=== PATIENT | male | born 1990 | race Caucasian/White ===

== ENCOUNTER 2017-08-19 23:49 | Observation (INO) ==
[2017-08-20] MEDS ORDERED: *HR* Promethazine 25 MG/ML VIAL IVP PRN (01:18)
[2017-08-20] MEDS ORDERED: *HR* HYDROcodone/Acet 5/325 mg TABLET PO PRN (01:18)
[2017-08-20] MEDS ORDERED: Acetaminophen 325 MG TABLET PO PRN (01:18)
[2017-08-20] MEDS ORDERED: *HR* OxyCODONE Immed Rel 5 MG TABLET PO PRN (01:18)
[2017-08-20] MEDS ORDERED: Naloxone 0.4 MG/ML INJ IVP PRN (01:18)
[2017-08-20] MEDS ORDERED: Ondansetron 4 MG/2 ML VIAL IVP PRN (01:18)
[2017-08-20] MEDS: 0.9 % Sodium Chloride 1,000 ML IVC SCH ×2 (01:43→09:28)
[2017-08-20 02:02] LABS: Basophils % 0.2 %; Hematocrit 44.3 % (37.5-50.1); Hemoglobin 14.8 g/dL (12.9-16.9); Immature Granulocytes % 0.5 % (0-4); Lymphocytes # 0.8 K/mcL (0.6-4.6); Lymphocytes % 5.7 %; Mean Corpuscular HGB Conc 33.4 g/dL (31.6-35.5); Mean Corpuscular Hemoglobin 28.6 pg (28.0-33.3); Mean Corpuscular Volume 85.7 fL (83.0-100.0); Monocytes # 0.6 K/mcL (0.0-1.3); Monocytes % 3.9 %; Neutrophils # 13.2 K/mcL (1.6-8.9); Platelet Count 183 K/mcL (140-400); Red Blood Count 5.17 M/mcL (4.19-5.50); Red Cell Distribution Width 12.2 % (11.5-14.5); Segmented Neutrophils % 89.7 %
--- NOTE | 2017-08-20 02:18 | Internal Med History&Physical ---
Date of Encounter: 08/20/17 Time of Encounter: 02:14 Internal Medicine - H&P: HPI Chief complaint: Rt lower abdomen pain Admitted From: Emergency Dept Plans for Post Hospital Care: Home History of present illness: Mr. Najera is a 27 year old male with no significant past the history, who presented to [facility] emergency room with right-sided lower abdomen pain associated with some intractable nausea and vomiting started yesterday afternoon. Patient denied of any dysuria / micturition. He denied of any chest pain / shortness of breath. He denied of any sick contacts. He denied of any food poisoning. He denied of any bright red blood per rectum/melena. Patient had a further workup done in the [facility] emergency room, his white count was significantly elevated at 20.0, lactic acid 3.[address] of abdomen showed possible early appendicitis and right hydrouretero hydronephrosis with a 3 mm stone in the proximal right ureter. Patient was transferred to our hospital for further care. Patient states that, his abdominal pain, nausea and vomiting improved now Past Med Surg Social Fam HX - Past Medical History Medical history: no medical history Psychiatric history: no psych history - Past Surgical History Surgical History: no surgical history - Social History Smoking Status: Never smoker Smokeless Tobacco Status: No Alcohol use: none Drug use: none - Family History Paternal Grandmother Age: 74 Living Status: Hx Family Cardiac Disorders: Yes Hx Family Endocrine Disorder: Yes Internal Medicine - H&P: Meds 3 Allergy/AdvReac Type Severity Reaction Status Date / Time No Known Allergies Allergy Verified 08/20/17 01:34 All Systems PM: A 10-system review of systems was performed and is negative for pertinent findings except as documented above in the HPI. Review of systems: All the systems are reviewed everything is benign except the systems and symptoms I mentioned in the history of present illness - Constitutional Vitals: Temp Pulse Resp BP Pulse Ox 97.9 F 77 16 105/62 97 08/20/17 00:54 08/20/17 00:54 08/20/17 00:54 08/20/17 00:54 08/20/17 01:58 General appearance: Present: A&O X 3, no acute distress, answers questions appropriately - Head Head exam: Present: atraumatic, normal inspection - Neck Neck exam general surgery: Present: supple - Respiratory Respiratory exam: Present: CTAB. Absent: chest wall tenderness, rales, respiratory distress, rhonchi, wheezes - Cardiovascular Cardiovascular exam: Present: RRR, +S1, +S2. Absent: systolic murmur, tachycardia - GI/Abdominal GI/Abdominal exam: Present: normal bowel sounds, soft. Absent: distended, guarding, rebound, rigid, tenderness - Back Exam Back exam: Absent: CVA tenderness (L), CVA tenderness (R) - Neurological Exam Neurological exam: Present: alert, oriented X3 - Psychiatric Psychiatric exam: Present: normal affect, normal mood - Skin Skin exam: Absent: rash Internal Med - H&P Results - Labs CBC & Chem 7: 08/20/17 01:44 Labs: Short CBC 08/20/17 Range/Units 01:44 WBC 14.7 H (4.3-11.1) K/mcL Hgb 14.8 (12.9-16.9) g/dL Hct 44.3 (37.5-50.1) % Plt Count 183 (140-400) K/mcL Neutrophils # 13.2 H (1.6-8.9) K/mcL - Assessment and plan (1) Sepsis Current Visit: Yes Status: Acute Assessment and plan: Admit the patient into [facility] patient does meet the sepsis criteria with the significantly elevated white count, significantly elevated lactic acid 3.5, and source of infection as UTI as well as appendicitis reviewed patient CT scan abdomen from [facility] his symptoms are very less likely appendicitis related however surgeon Dr. Scales was consulted from [facility] appreciate surgery recommendations will keep him NPO for now continue IV hydration pain medication as needed Qualifiers: Sepsis type: sepsis due to unspecified organism Qualified Code(s): A41.9 - Sepsis, unspecified organism (2) Appendicitis Current Visit: Yes Status: Acute Qualifiers: Appendicitis type: acute appendicitis Acute appendicitis type: unspecified acute appendicitis type Qualified Code(s): K35.80 - Unspecified acute appendicitis (3) Ureteral calculus, right Current Visit: Yes Status: Acute Assessment and plan: Will strain the urine reviewed UA - showing Gross hematuria as well as few bacteria continue symptomatic and supportive care if patient pain persist, will consult urology for further evaluation (4) UTI (urinary tract infection) Current Visit: Yes Status: Acute Qualifiers: Urinary tract infection type: acute cystitis Hematuria presence: with hematuria Qualified Code(s): N30.01 - Acute cystitis with hematuria - Time Spent With Patient Total time spent is greater than 50% in coordination of care (as documented) at patient's floor/unit and/or counseling patient:
[2017-08-20 02:23] LABS: Alanine Aminotransferase 17 Units/L (7-52); Albumin 4.3 g/dL (3.5-5.7); Albumin/Globulin Ratio 1.9 (1.1-2.2); Alkaline Phosphatase 50 Units/L (34-104); Aspartate Amino Transferase 18 Units/L (13-39); BUN/Creatinine Ratio 18 (6-26); Bilirubin,Total 0.7 mg/dL (0.3-1.0); Blood Urea Nitrogen 17 mg/dL (6-20); Calcium 9.6 mg/dL (8.6-10.3); Carbon Dioxide 29 mEq/L (23-29); Chloride 107 mEq/L (98-107); Globulin 2.3 g/dL (2.4-3.5); Glucose 120 mg/dL (70-105); Osmolality,Calculated 297 (280-300); Potassium 4.3 mEq/L (3.5-5.1); Sodium 142 mEq/L (136-145); Total Protein 6.6 g/dL (6.4-8.9); eGFR For African Americans > 60 (> 60); eGFR For Non-African Americans > 60 (> 60)
[2017-08-20] MEDS ORDERED: Piperacillin/Tazobactam 3.375 GM in 0.9 % Sodium Chloride Mini Bag 100 ML IVPB SCH (08:00)
--- NOTE | 2017-08-20 08:33 | General Surgery Consult Note ---
<Joanna Kirby - Last Filed: 08/20/17 08:46> Date of Encounter: 08/20/17 Time of Encounter: 08:33 Assessment and Plan (1) Abdominal pain Current Visit: Yes Status: Acute Generalized abdominal pain to the right mid abdomen. Non-radiating and has resolved. His physical exam is benign. His white blood cell count has improved to 14.7, he is afebrile, and his vital signs are stable. His history and physical exam are more consistent with renal calculi although images from [facility] are not available for review and per report, no oral contrast was utilized. We will review the images from [facility] once received. Further recommendations pending. Pt should remain NPO until images reviewed in the less likely event of surgical intervention. See attending attestation for further/final recommendations. Qualifiers: Abdominal location: generalized Qualified Code(s): R10.84 - Generalized abdominal pain (2) Ureteral calculus, right Current Visit: Yes Status: Acute Per primary and urology (3) UTI (urinary tract infection) Current Visit: Yes Status: Acute Management per primary Qualifiers: Urinary tract infection type: acute cystitis Hematuria presence: with hematuria Qualified Code(s): N30.01 - Acute cystitis with hematuria History of Present Illness Consult date: 08/19/17 (Dr. Anika Oconnell) Reason for consult: other Requesting physician: Joby Flores History of present illness: Deon is a 27 year old L who presented to [facility] emergency department on 2017 following a sudden onset of right upper and mid abdominal discomfort. Patient states that shortly after his grandmother's he developed right mid abdominal discomfort that was sharp, constant, and had no aggravating or alleviating factors, forced him to lie down on the floor and he was unable to find a comfortable position to relieve the discomfort. He began having episodes of vomiting which he attributes to the discomfort. He denies nausea, fevers, migration of the discomfort, changes in bowel habits, constipation, diarrhea, bloody urination, but endorses decreased urination. Deon denies past surgical history or pass social history. At [facility] he received IV Zosyn, underwent a CT of the abdomen and pelvis with contrast, blood cultures, urinalysis, and his discomfort was treated. His WBC was 20, with elevated neutrophils and monocytes, lactic acid was 3.5, his urinalysis pH 9.0, protein 100, ketones greater than 80, large amount of blood, he had a CT with IV contrast which per report from [facility], noted the base of the appendix is borderline enlarged measuring 7 mm, questionable sub serviceable infiltration, difficult to exclude early appendicitis, notably right hydrourteronephrosis with a 3 mm stone in the proximal right ureter. Surgery has been asked to evaluate this patient for possible early appendicitis. Past Med Surg Social Fam HX - Past Medical History Medical history: no medical history Psychiatric history: no psych history - Past Surgical History Surgical History: no surgical history - Social History Smoking Status: Never smoker Smokeless Tobacco Status: No Alcohol use: none Drug use: none - Family History Paternal Grandmother Age: 74 Living Status: Hx Family Cardiac Disorders: Yes Hx Family Endocrine Disorder: Yes Medications and Allergies No Known Home Drugs 08/20/17 [History] 3 Allergy/AdvReac Type Severity Reaction Status Date / Time No Known Allergies Allergy Verified 08/20/17 08:37 Review of Systems All systems PM: reviewed and no additional remarkable complaints except as stated All systems PM: The remainder of the systems were reviewed and are negative General Surgery Exam Initial Vital Signs Temp Pulse Resp BP Pulse Ox 97.9 F 77 16 105/62 97 08/20/17 00:54 08/20/17 00:54 08/20/17 00:54 08/20/17 00:54 08/20/17 00:54 VITAL SIGNS: Reviewed. See [facility] GENERAL: In no apparent distress. HEENT: Normocephalic, atraumatic, pupils are equal and reactive, extraocular motions intact, oropharynx is pink and moist, there is no neck adenopathy or JVD noted. CHEST/RESPIRATORY: The thorax is free from signs of trauma. Lung sounds: clear to auscultation, normal respiratory effort CARDIAC: Regular rate and rhythm. Normal S1 and S2, without murmurs, gallops, or rubs. VASCULAR: No Edema. 2+ peripheral pulses. ABDOMEN: soft, nontender, active bowel sounds, negative McBurney, negative obturator, negative Psoas. MUSCULOSKELETAL: Good range of motion of all major joints. Extremities without clubbing, cyanosis or edema. NEUROLOGIC EXAM: Alert and oriented x 3. Speech normal. Follows commands. PSYCHIATRIC: Mood normal. SKIN: No rash or lesions. Exam Initial Vital Signs Temp Pulse Resp BP Pulse Ox 97.9 F 77 16 105/62 97 08/20/17 00:54 08/20/17 00:54 08/20/17 00:54 08/20/17 00:54 08/20/17 00:54 Results - Labs 08/20/17 01:44 08/20/17 01:44 Abnormal lab results WBC 14.7 K/mcL (4.3-11.1) H 08/20/17 01:44 Neutrophils # 13.2 K/mcL (1.6-8.9) H 08/20/17 01:44 Glucose 120 mg/dL (70-105) H 08/20/17 01:44 Globulin 2.3 g/dL (2.4-3.5) L 08/20/17 01:44 Diabetes panel 08/20/17 Range/Units 01:44 Sodium 142 (136-145) mEq/L Potassium 4.3 (3.5-5.1) mEq/L Chloride 107 (98-107) mEq/L Carbon Dioxide 29 (23-29) mEq/L BUN 17 (6-20) mg/dL Creatinine 0.96 (0.70-1.30) mg/dL Glucose 120 H (70-105) mg/dL Calcium 9.6 (8.6-10.3) mg/dL AST 18 (13-39) Units/L ALT 17 (7-52) Units/L Alkaline Phosphatase 50 (34-104) Units/L Albumin 4.3 (3.5-5.7) g/dL Calcium panel 08/20/17 Range/Units 01:44 Calcium 9.6 (8.6-10.3) mg/dL Albumin 4.3 (3.5-5.7) g/dL Pituitary panel 08/20/17 Range/Units 01:44 Sodium 142 (136-145) mEq/L Potassium 4.3 (3.5-5.1) mEq/L Chloride 107 (98-107) mEq/L Carbon Dioxide 29 (23-29) mEq/L BUN 17 (6-20) mg/dL Creatinine 0.96 (0.70-1.30) mg/dL Glucose 120 H (70-105) mg/dL Calcium 9.6 (8.6-10.3) mg/dL Adrenal panel 08/20/17 Range/Units 01:44 Sodium 142 (136-145) mEq/L Potassium 4.3 (3.5-5.1) mEq/L Chloride 107 (98-107) mEq/L Carbon Dioxide 29 (23-29) mEq/L BUN 17 (6-20) mg/dL Creatinine 0.96 (0.70-1.30) mg/dL Glucose 120 H (70-105) mg/dL Calcium 9.6 (8.6-10.3) mg/dL Total Bilirubin 0.7 (0.3-1.0) mg/dL AST 18 (13-39) Units/L ALT 17 (7-52) Units/L Alkaline Phosphatase 50 (34-104) Units/L Albumin 4.3 (3.5-5.7) g/dL All other labs normal. Consult Discharge Plan - Plan Referrals: NONE,PCP [Primary Care Provider] - (Patients wishes to find his own primary care physician at this time. Thank you) <Anika Oconnell - Last Filed: 08/20/17 12:57> Date of Encounter: 08/20/17 Assessment and Plan (1) Abdominal pain Current Visit: Yes Status: Acute patient without any abdominal pain currently, he has only received about 2-3 doses of antibiotics and an acute appendicitis would not be expected to turn around and respond to antibiotics alone so quickly. It is more likely he has passed a renal stone. PE without any abdominal pain currently. will give diet and if tolerates ok to dc from surgery standpoint. If upon DC symptoms return he is to report to ED CT images yet to be received from [facility] Qualifiers: Abdominal location: generalized Qualified Code(s): R10.84 - Generalized abdominal pain (2) Ureteral calculus, right Current Visit: Yes Status: Acute (3) Leukocytosis Current Visit: Yes Status: Acute wbc decreasing, from surgical standpoint no need for outpatient antibiotics, doesnt appear to be appendicitis Qualifiers: Leukocytosis type: unspecified Qualified Code(s): D72.829 - Elevated white blood cell count, unspecified History of Present Illness History of present illness: patient with acute onset diffused abdominal pain yesterday after returning from his grandmothers . Then the patient developed nausea and emesis, chills and sweats. He denies back pain or pain into his right groin. The pain then became centered in the RLQ and was sharp. He presented to OSH ED and CT showed 7mm base of appendix and serosal injection??, no periappendaceal inflammation. A 3mm right proximal ureter stone with hydronephrosis. Patient reports once he was given pain medication in the ED his RLQ pain stopped and currently has no pain/N/V. Past Med Surg Social Fam HX - Past Medical History Source: patient Review of Systems All systems PM: The remainder of the systems were reviewed and are negative General Surgery Exam Initial Vital Signs Temp Pulse Resp BP Pulse Ox 97.9 F 77 16 105/62 97 08/20/17 00:54 08/20/17 00:54 08/20/17 00:54 08/20/17 00:54 08/20/17 00:54 - General physical appearance well developed, well nourished, no distress - Eyes PERRL, normal ocular movement - ENT normal mucosa, normocephalic - Neck trachea midline - Respiratory normal expansion, clear to auscultation - Cardiovascular Cardiovascular exam: Present: RRR - Abdomen Abdomen general surgery: Present: soft, non tender. Absent: distended, guarding , rebound - Integumentary Integumentary general surgery: Present: warm and dry - Neurologic Present: CN 2-12 grossly intact - Musculoskeletal Present: normal posture - Psychiatric Psychiatric general surgery: Present: A&Ox3, speech is normal Exam Initial Vital Signs Temp Pulse Resp BP Pulse Ox 97.9 F 77 16 105/62 97 08/20/17 00:54 08/20/17 00:54 08/20/17 00:54 08/20/17 00:54 08/20/17 00:54 Results - Labs 08/20/17 01:44 08/20/17 01:44 Abnormal lab results WBC 14.7 K/mcL (4.3-11.1) H 08/20/17 01:44 Neutrophils # 13.2 K/mcL (1.6-8.9) H 08/20/17 01:44 Glucose 120 mg/dL (70-105) H 08/20/17 01:44 Globulin 2.3 g/dL (2.4-3.5) L 08/20/17 01:44 Ur Specific Yeoman > 1.030 (1.010-1.025) H 08/20/17 09:00 Urine Protein 30 mg/dL (Neg-Trace) H 08/20/17 09:00 Urine Blood Small (Negative) H 08/20/17 09:00 Urine Microscopic RBC 5-15 per hpf (0-3) H 08/20/17 09:00 Urine Microscopic WBC 3-5 per hpf (0-3) H 08/20/17 09:00 Diabetes panel 08/20/17 Range/Units 01:44 Sodium 142 (136-145) mEq/L Potassium 4.3 (3.5-5.1) mEq/L Chloride 107 (98-107) mEq/L Carbon Dioxide 29 (23-29) mEq/L BUN 17 (6-20) mg/dL Creatinine 0.96 (0.70-1.30) mg/dL Glucose 120 H (70-105) mg/dL Calcium 9.6 (8.6-10.3) mg/dL AST 18 (13-39) Units/L ALT 17 (7-52) Units/L Alkaline Phosphatase 50 (34-104) Units/L Albumin 4.3 (3.5-5.7) g/dL Calcium panel 08/20/17 Range/Units 01:44 Calcium 9.6 (8.6-10.3) mg/dL Albumin 4.3 (3.5-5.7) g/dL Pituitary panel 08/20/17 Range/Units 01:44 Sodium 142 (136-145) mEq/L Potassium 4.3 (3.5-5.1) mEq/L Chloride 107 (98-107) mEq/L Carbon Dioxide 29 (23-29) mEq/L BUN 17 (6-20) mg/dL Creatinine 0.96 (0.70-1.30) mg/dL Glucose 120 H (70-105) mg/dL Calcium 9.6 (8.6-10.3) mg/dL Adrenal panel 08/20/17 Range/Units 01:44 Sodium 142 (136-145) mEq/L Potassium 4.3 (3.5-5.1) mEq/L Chloride 107 (98-107) mEq/L Carbon Dioxide 29 (23-29) mEq/L BUN 17 (6-20) mg/dL Creatinine 0.96 (0.70-1.30) mg/dL Glucose 120 H (70-105) mg/dL Calcium 9.6 (8.6-10.3) mg/dL Total Bilirubin 0.7 (0.3-1.0) mg/dL AST 18 (13-39) Units/L ALT 17 (7-52) Units/L Alkaline Phosphatase 50 (34-104) Units/L Albumin 4.3 (3.5-5.7) g/dL All other labs normal. - Attending Attestation I examined this patient and my medical decision-making was reviewed with the Resident Physician. I agree with the documented findings, disposition and treatment plan as described except to the extent set forth below.
[2017-08-20 09:33] LABS: Bilirubin,Urine Negative (Negative); Blood,Urine Small (Negative); Clarity,Urine Clear (Clear); Color,Urine Yellow (Yellow); Glucose,Urine (UA) Normal (Normal); Ketones,Urine Negative (Negative); Leukocyte Esterase,Urine Negative (Negative); Nitrite,Urine Negative (Negative); PH,Urine 6.5 pH Units (5.0-8.0); Protein,Urine 30 mg/dL (Neg-Trace); Specific Gravity,Urine > 1.030 (1.010-1.025); Urobilinogen,Urine Normal (Normal)
[2017-08-20 09:37] LABS: Bacteria,Urine None Seen per hpf (None-Few); Hyaline Casts,Urine None Seen per lpf (None-Few)
[2017-08-20 09:50] LABS: Squamous Epithelial Cell,Urine Few per lpf (None-Few)
--- NOTE | 2017-08-20 10:56 | Internal Med Progress Note ---
<NeilmarcyPieter Sesay - Last Filed: 08/20/17 10:53> Date of Encounter: 08/20/17 Time of Encounter: 09:00 - Assessment and plan (1) Abdominal pain Status: Acute Assessment and plan: 27-year-old male who had abdominal pain seen in [facility] on 2017 found to have WBC of 20, lactic acid 3.5 CT abdomen demonstrated possible early appendicitis and right hydroureter with hydronephrosis with a 3 mm stone in the proximal ureter. Labs from 08/20/2017 demonstrated WBC 14.7, hemoglobin 14.8, platelets 183, segmented neutrophils 89.7%, neutrophil #13.2 appropriate chemistry panel, lactic acid 1.0 - Clinical evaluation did not correlate with findings of pyelonephritis or for acute appendicitis at this time - Abdominal x-ray demonstrates a mid pole left-sided renal calculus. - General surgery following appreciate recommendations - Continue nothing by mouth - Continue IV Zosyn day 2 for potential appendicitis. Qualifiers: Abdominal location: generalized Qualified Code(s): R10.84 - Generalized abdominal pain (2) Kidney stones Status: Acute Assessment and plan: Patient has CT and abdominal x-ray findings of kidney stones. - No significant history of obstructing or symptomatic kidney stones in the past. - Clinically stable. (3) Ureteral calculus, right Status: Acute Assessment and plan: Is reported that there was a obstructing 3 mm right ureteral calculus on CT at [facility]. - patient is currently stable without symptoms. - Continue to monitor. - Time Spent With Patient Total time spent is greater than 50% in coordination of care (as documented) at patient's floor/unit and/or counseling patient: - Subjective Interval history: Mr. Najera 27-year-old male seen and evaluated patient that site. He denies any fevers, chills, diaphoresis, chest pain, shortness of breath, sputum production, abdominal pain, nausea, vomiting, diarrhea, constipation or urinary symptoms including burning with urination or blood in his urine. He states the abdominal pain and vomiting improved after receiving IV fluids yesterday at [facility] before transfer. Since then he feels that he is doing much better denies any concerns this morning and is awaiting recommendations from general surgery. He denies any history of known kidney stones in the past. - Constitutional Vitals: Temp Pulse Resp BP Pulse Ox 97.9 F 70 16 109/70 100 08/20/17 10:19 08/20/17 10:19 08/20/17 10:19 08/20/17 10:19 08/20/17 10:19 General appearance: Present: A&O X 3, no acute distress, answers questions appropriately Exam: General: Patient alert, awake, oriented 3, interactive, in no acute distress HEENT: Normocephalic, atraumatic, pupils equal reactive to light, oral mucosa moist, uvula midline, neck supple trachea midline no palpable lymphadenopathy, no thyromegaly. Chest: Symmetric bilateral correlating with respiratory effort, effort nonlabored. Cardiac: Regular rate and rhythm, positive S1 and S2. no bruits appreciated bilateral carotids, Radial pulses 2+ bilateral, posterior tibial and dorsal pedal pulses 2+ bilateral. Respiratory: Clear to auscultation all lung arce Abdomen: Soft, nontender, positive bowel sounds, no palpable masses appreciated on examination Extremities: Symmetric bilateral, bilateral lower extremities without erythema or edema patient moving all 4 extremities spontaneously. Neurologic: No focal deficits appreciated on examination. Face symmetric, muscle strength symmetric bilateral upper and lower extremities. Internal Medicine: Result - Labs CBC & Chem 7: 08/20/17 01:44 08/20/17 01:44 Labs: Short CBC 08/20/17 Range/Units 01:44 WBC 14.7 H (4.3-11.1) K/mcL Hgb 14.8 (12.9-16.9) g/dL Hct 44.3 (37.5-50.1) % Plt Count 183 (140-400) K/mcL Neutrophils # 13.2 H (1.6-8.9) K/mcL BMP 08/20/17 01:44 Sodium 142 Potassium 4.3 Chloride 107 Carbon Dioxide 29 BUN 17 Creatinine 0.96 Glucose 120 H Calcium 9.6 Liver Function 08/20/17 Range/Units 01:44 Total Bilirubin 0.7 (0.3-1.0) mg/dL AST 18 (13-39) Units/L ALT 17 (7-52) Units/L Alkaline Phosphatase 50 (34-104) Units/L Albumin 4.3 (3.5-5.7) g/dL Urine 08/20/17 Range/Units 09:00 Urine Color Yellow (Yellow) Urine Clarity Clear (Clear) Urine pH 6.5 (5.0-8.0) pH Units Ur Specific Home > 1.030 H (1.010-1.025) Urine Protein 30 H (Neg-Trace) mg/dL Urine Glucose (UA) Normal (Normal) mg/dL - Impressions Impressions KUB X-Ray 08/20/17 08:53 IMPRESSION: Small calculus within the midpole of the left kidney. No gross ureteral calculi are visualized. D/ / 08/20/2017 09:56:30 Ramone Sol MD / Nalini Aguilar Interpreting Provider: Ramone Sol MD Consult Discharge Plan - Plan Instructions: Urinary Tract Infection in Men (DC), Sepsis (DC) Referrals: NONE,PCP [Primary Care Provider] - (Patients wishes to find his own primary care physician at this time. Thank you) <Tiago Singh Ave - Last Filed: 09/03/17 16:24> Date of Encounter: 09/03/17 - Assessment and plan (1) Sepsis Status: Acute Qualifiers: Sepsis type: sepsis due to unspecified organism Qualified Code(s): A41.9 - Sepsis, unspecified organism (2) Appendicitis Status: Acute Qualifiers: Appendicitis type: acute appendicitis Acute appendicitis type: unspecified acute appendicitis type Qualified Code(s): K35.80 - Unspecified acute appendicitis (3) Ureteral calculus, right Status: Acute (4) UTI (urinary tract infection) Status: Acute Qualifiers: Urinary tract infection type: acute cystitis Hematuria presence: with hematuria Qualified Code(s): N30.01 - Acute cystitis with hematuria - Time Spent With Patient Total time spent is greater than 50% in coordination of care (as documented) at patient's floor/unit and/or counseling patient: - Constitutional Vitals: Temp Pulse Resp BP Pulse Ox 98.1 F 66 17 110/64 100 08/20/17 15:45 08/20/17 15:45 08/20/17 15:45 08/20/17 15:45 08/20/17 15:45 Internal Medicine: Result - Labs CBC & Chem 7: 08/20/17 01:44 08/20/17 01:44 - Attending Attestation ok to discharge I examined this patient and my medical decision-making was reviewed with the Resident Physician. I agree with the documented findings, disposition and treatment plan as described except to the extent set forth below.
--- NOTE | 2017-08-20 13:11 | Urology - Consult Note ---
Date of Encounter: 08/20/17 Time of Encounter: 13:08 - Assessment and Plan (1) Kidney stones Current Visit: Yes Status: Acute Assessment and plan: Patient's pain has completely resolved. He either passed his stone or it is passing. No urological intervention at this time. Cannot see stone on KUB. Patient can follow-up with me in 2-3 weeks if he has any further symptoms from the stone. (2) Leukocytosis Current Visit: Yes Status: Acute Assessment and plan: resolving. no abx needed from urology standpoint. Qualifiers: Leukocytosis type: unspecified Qualified Code(s): D72.829 - Elevated white blood cell count, unspecified Urology CN:HPI Consult date: 08/20/17 Reason for consult Urology: Hydronephrosis Requesting physician: Anika Oconnell History of present illness: Deon is a 27-year-old male with a history of sudden onset right lower quadrant abdominal discomfort yesterday. Patient went to outside facility was found to have possible early appendicitis and a 3 mm left proximal ureteral stone with some hydronephrosis. CT scan was partially transferred to our facility for review. I was unable to completely follow the right ureter secondary to limited imaging. Patient's pain completely resolved without any significant flank pain upon arrival to our facility. He also had some leukocytosis which improved within a few hours. No nausea or vomiting. No fevers. Past Med Surg Social Fam HX - Past Medical History Medical history: no medical history Psychiatric history: no psych history - Past Surgical History Surgical History: no surgical history - Social History Smoking Status: Never smoker Smokeless Tobacco Status: No Alcohol use: none Drug use: none - Family History Paternal Grandmother Age: 74 Living Status: Hx Family Cardiac Disorders: Yes Hx Family Endocrine Disorder: Yes Medications and Allergies No Known Home Drugs 08/20/17 [History] 3 Allergy/AdvReac Type Severity Reaction Status Date / Time No Known Allergies Allergy Verified 08/20/17 08:37 Review of Systems - Constitutional no chills, no fever(s) - EENT Nose, mouth and throat: no dizziness - Cardiovascular no chest pain, no diaphoresis - Respiratory no cough, no dyspnea - Gastrointestinal no abdominal pain Exam Initial Vital Signs Temp Pulse Resp BP Pulse Ox 97.9 F 77 16 105/62 97 08/20/17 00:54 08/20/17 00:54 08/20/17 00:54 08/20/17 00:54 08/20/17 00:54 General/Neuological: alert and oriented x 3 Eyes: normal pupils, non-icteric Neck: no lymphadenopathy noted, supple to touch ABD: soft, nontender, no masses palpated, good bowel sounds Back: no pain on percussion bilaterally Skin: no rashes noted Musculoskeletal: normal gait, FROMx4 Urology Results - Labs 08/20/17 01:44 08/20/17 01:44 Abnormal lab results WBC 14.7 K/mcL (4.3-11.1) H 08/20/17 01:44 Neutrophils # 13.2 K/mcL (1.6-8.9) H 08/20/17 01:44 Glucose 120 mg/dL (70-105) H 08/20/17 01:44 Globulin 2.3 g/dL (2.4-3.5) L 08/20/17 01:44 Ur Specific [place] > 1.030 (1.010-1.025) H 08/20/17 09:00 Urine Protein 30 mg/dL (Neg-Trace) H 08/20/17 09:00 Urine Blood Small (Negative) H 08/20/17 09:00 Urine Microscopic RBC 5-15 per hpf (0-3) H 08/20/17 09:00 Urine Microscopic WBC 3-5 per hpf (0-3) H 08/20/17 09:00 Diabetes panel 08/20/17 Range/Units 01:44 Sodium 142 (136-145) mEq/L Potassium 4.3 (3.5-5.1) mEq/L Chloride 107 (98-107) mEq/L Carbon Dioxide 29 (23-29) mEq/L BUN 17 (6-20) mg/dL Creatinine 0.96 (0.70-1.30) mg/dL Glucose 120 H (70-105) mg/dL Calcium 9.6 (8.6-10.3) mg/dL AST 18 (13-39) Units/L ALT 17 (7-52) Units/L Alkaline Phosphatase 50 (34-104) Units/L Albumin 4.3 (3.5-5.7) g/dL Calcium panel 08/20/17 Range/Units 01:44 Calcium 9.6 (8.6-10.3) mg/dL Albumin 4.3 (3.5-5.7) g/dL Pituitary panel 08/20/17 Range/Units 01:44 Sodium 142 (136-145) mEq/L Potassium 4.3 (3.5-5.1) mEq/L Chloride 107 (98-107) mEq/L Carbon Dioxide 29 (23-29) mEq/L BUN 17 (6-20) mg/dL Creatinine 0.96 (0.70-1.30) mg/dL Glucose 120 H (70-105) mg/dL Calcium 9.6 (8.6-10.3) mg/dL Adrenal panel 08/20/17 Range/Units 01:44 Sodium 142 (136-145) mEq/L Potassium 4.3 (3.5-5.1) mEq/L Chloride 107 (98-107) mEq/L Carbon Dioxide 29 (23-29) mEq/L BUN 17 (6-20) mg/dL Creatinine 0.96 (0.70-1.30) mg/dL Glucose 120 H (70-105) mg/dL Calcium 9.6 (8.6-10.3) mg/dL Total Bilirubin 0.7 (0.3-1.0) mg/dL AST 18 (13-39) Units/L ALT 17 (7-52) Units/L Alkaline Phosphatase 50 (34-104) Units/L Albumin 4.3 (3.5-5.7) g/dL All other labs normal. - Imaging CT scan - abdomen: image reviewed Consult Discharge Plan - Plan Referrals: NONE,PCP [Primary Care Provider] - (Patients wishes to find his own primary care physician at this time. Thank you)
--- NOTE | 2017-08-20 14:12 | Event Note ---
Date of Encounter: 08/20/17 Time of Encounter: 14:11 Ok to donita from a surgical perspective. Pt should return if symptoms or RLQ pain , n/v, or fever. No surgical follow-up otherwise. Thank you for allowing us to participate in Mr. Rojas's care.
[2017-08-20 15:47] VITALS: BP 110/64
--- NOTE | 2017-08-20 15:55 | Discharge Summary ---
<Pieter Chu - Last Filed: 08/20/17 15:50> Date of Encounter: 08/20/17 Time of Encounter: 15:50 - Discharge Diagnosis (1) Abdominal pain Priority: Primary Status: Acute Qualifiers: Abdominal location: generalized Qualified Code(s): R10.84 - Generalized abdominal pain (2) Kidney stones Priority: Primary Status: Acute (3) Ureteral calculus, right Priority: Primary Status: Acute Hospital course: Mr. Najera is a 27 year old male with no significant past medical problems presented to [facility] on 08/19 with diffuse abdominal pain associated with nausea and vomiting. He underwent evaluation received IV fluids and underwent CT scan of the abdomen which showed possible appendicitis and right ureter stone measuring 3mm with hydronephrosis. Labs were reported as Lactic acid 3.5 and WBC of 20. He was transferred to [facility] for further evaluation and treatment. He had an abdominal KUB with findings of left midpole calculus. Gen surgery and urology were consulted and evaluated the patient. On 08/20 patient was asymptomatic, consulting surgery and urology evaluated and determined that no intervention was necessary at this time. Patient to follow up with PCP in 2-3 wks. Mr. Najera was evaluated and deemed stable for discharge on 08/20 with follow up with PCP and urology as scheduled. - Time Spent with Patient Total time spent providing and/or coordinating discharge services: - Discharge Medications Home Medications: No Known Home Drugs 08/20/17 [History] Allergies/Adverse Reactions: 3 Allergy/AdvReac Type Severity Reaction Status Date / Time No Known Allergies Allergy Verified 08/20/17 08:37 Date of admission: 08/20/17 01:18 Primary care physician: PCP NONE Consults: 08/20/17 02:13 Consult to Surgery [CONS] Routine Consulting Provider: [facility] Reason for Consult: Early acute appendicitis Call Completed: Yes 08/20/17 08:21 Consult to Urology [CONS] Routine Consulting Provider: Urology Ana María Reason for Consult: right ureter obstructing stone with hydronephrosis Time Notified: 08:22 Call Completed: Yes Discharging clinician: Pieter Chu Anticipated date of discharge: 08/20/17 - Constitutional Vitals: Temp Pulse Resp BP Pulse Ox 98.1 F 66 17 110/64 100 08/20/17 15:45 08/20/17 15:45 08/20/17 15:45 08/20/17 15:45 08/20/17 15:45 General appearance: Present: A&O X 3, no acute distress, answers questions appropriately Exam: General: Patient alert, awake, oriented 3, interactive, in no acute distress HEENT: Normocephalic, atraumatic, pupils equal reactive to light, oral mucosa moist, uvula midline, neck supple trachea midline no palpable lymphadenopathy, no thyromegaly. Chest: Symmetric bilateral correlating with respiratory effort, effort nonlabored. Cardiac: Regular rate and rhythm, positive S1 and S2. no bruits appreciated bilateral carotids, Radial pulses 2+ bilateral, posterior tibial and dorsal pedal pulses 2+ bilateral. Respiratory: Clear to auscultation all lung arce Abdomen: Soft, nontender, positive bowel sounds, no palpable masses appreciated on examination Extremities: Symmetric bilateral, bilateral lower extremities without erythema or edema patient moving all 4 extremities spontaneously. Neurologic: No focal deficits appreciated on examination. Face symmetric, muscle strength symmetric bilateral upper and lower extremities. - Patient Status Disposition: Home, Self-Care Condition: Good Functional capacity at discharge: independent ambulation Overall status at discharge: patient is progressing back to baseline - Discharge Instructions Instructions: Urinary Tract Infection in Men (DC), Sepsis (DC) Follow Up With: NONE,PCP [Primary Care Provider] - (Patients wishes to find his own primary care physician at this time. Thank you) - Diet and Activity Activity: increase activity as tolerated Diet: advance to your usual diet <Tiago Singh H - Last Filed: 08/20/17 17:18> Date of Encounter: 08/20/17 - Discharge Diagnosis (1) Sepsis Status: Acute Qualifiers: Sepsis type: sepsis due to unspecified organism Qualified Code(s): A41.9 - Sepsis, unspecified organism (2) Appendicitis Status: Acute Qualifiers: Appendicitis type: acute appendicitis Acute appendicitis type: unspecified acute appendicitis type Qualified Code(s): K35.80 - Unspecified acute appendicitis (3) Ureteral calculus, right Status: Acute (4) UTI (urinary tract infection) Status: Acute Qualifiers: Urinary tract infection type: acute cystitis Hematuria presence: with hematuria Qualified Code(s): N30.01 - Acute cystitis with hematuria Hospital course: Mr. Najera is a 27 year old male - Time Spent with Patient Total time spent providing and/or coordinating discharge services: Date of admission: 08/20/17 00:33 Primary care physician: PCP NONE Consults: 08/20/17 02:13 Consult to Surgery [CONS] Routine Consulting Provider: [facility] Reason for Consult: Early acute appendicitis Call Completed: Yes 08/20/17 08:21 Consult to Urology [CONS] Routine Consulting Provider: U[facility] Reason for Consult: right ureter obstructing stone with hydronephrosis Time Notified: 08:22 Call Completed: Yes - Constitutional Vitals: Temp Pulse Resp BP Pulse Ox 98.1 F 66 17 110/64 100 08/20/17 15:45 08/20/17 15:45 08/20/17 15:45 08/20/17 15:45 08/20/17 15:45 - Attending Attestation likely passed a right uretereal calculus stable to discharge time spent: 25 min I examined this patient and my medical decision-making was reviewed with the Resident Physician. I agree with the documented findings, disposition and treatment plan as described except to the extent set forth below.
== END 2017-08-20 16:23 | disposition home or self-care (01) ==
LOC: 3ANU
PROVIDERS: ADMIT Family Medicine; ATTEND Internal Medicine